=== PATIENT | female | born 1945 | race Caucasian/White ===

== ENCOUNTER 2017-06-09 11:26 | Emergency (ER) | payer MEDICARE ==
[2017-06-09 11:32] VITALS: BMI 18.8
[2017-06-09 11:35] VITALS: O2SAT 99
[2017-06-09] MEDS ORDERED: Iohexol 240 (50 ml) PO STA (12:11)
--- NOTE | 2017-06-09 12:11 | C.PDOC ---
History Of Present Illness 71 year old female presents to the ED c/o of left flank pain and lower abdominal pain that started approximately a week ago. Patient reports her pain started in her left flank kept moving to her lower abdomen associated now with back pain. Patient states she took Tylenol with no relief. Patient denies hx of kidney stones, dysuria, hematuria, nausea, vomit, diarrhea, fever, chills. Time Seen by Provider: 06/09/17 11:43 Chief Complaint (Nursing): Abdominal Pain History Per: Patient History/Exam Limitations: no limitations Onset/Duration Of Symptoms: Days Current Symptoms Are (Timing): Still Present Location Of Pain/Discomfort: Suprapubic Radiation Of Pain To:: Back Quality Of Discomfort: "Pain" Associated Symptoms: Back Pain Exacerbating Factors: None Alleviating Factors: None Recent travel outside of the [place]: No Additional History Per: Patient Abnormal Vaginal Bleeding: No Past Medical History Reviewed: Historical Data, Nursing Documentation, Vital Signs Vital Signs: Last Vital Signs Temp 97.9 F 06/09/17 16:56 Pulse 76 06/09/17 16:56 Resp 18 06/09/17 16:56 BP 151/76 H 06/09/17 16:56 Pulse Ox 99 06/09/17 16:56 - Medical History PMH: Arthritis, Gastritis Denies: Chronic Kidney Disease Surgical History: Endoscopy, Tonsillectomy Family History: States: Unknown Family Hx - Social History Hx Tobacco Use: No Hx Alcohol Use: No Hx Substance Use: No - Immunization History Hx Tetanus Toxoid Vaccination: No Hx Influenza Vaccination: No Hx Pneumococcal Vaccination: Yes Review Of Systems Constitutional: Negative for: Fever, Chills Cardiovascular: Negative for: Chest Pain Respiratory: Negative for: Cough, Shortness of Breath Gastrointestinal: Positive for: Abdominal Pain. Negative for: Nausea, Vomiting Genitourinary: Negative for: Dysuria, Frequency Musculoskeletal: Positive for: Back Pain Skin: Negative for: Rash Neurological: Negative for: Weakness, Numbness Physical Exam - Physical Exam Appears: Non-toxic, No Acute Distress Skin: Normal Color, Warm, Dry Head: Atraumatic, Normacephalic Eye(s): bilateral: Normal Inspection Nose: No Discharge, No Deformity Oral Mucosa: Moist Neck: Normal ROM, Supple Chest: Symmetrical Cardiovascular: Rhythm Regular, No Murmur Respiratory: Normal Breath Sounds, No Rales, No Rhonchi, No Wheezing Gastrointestinal/Abdominal: Soft, Tenderness (Suprapubic ), No Guarding, No Rebound Back: No CVA Tenderness, No Paraspinal Tenderness Extremity: Normal ROM (limited extension due to back pain), No Calf Tenderness, No Deformity, No Swelling Neurological/Psych: Oriented x3, Normal Speech, Normal Cognition, Normal Motor, Normal Sensation Gait: Steady ED Course And Treatment - Laboratory Results Result Diagrams: 06/09/17 13:04 06/09/17 13:04 O2 Sat by Pulse Oximetry: 99 (On RA) Pulse Ox Interpretation: Normal - CT Scan/US CT abd/pelvis Other Rad Studies (CT/US): Read By Radiologist, Radiology Report Reviewed CT/US Interpretation: PROCEDURE: CT scan abdomen and pelvis dated 06/09/2017. . HISTORY: Left flank, mid back, suprapubic pain. COMPARISON: No prior study available for comparison. TECHNIQUE: Contiguous axial images of the pelvis performed following oral contrast and pre and post intravenous injection of approximately 100 cc Visipaque 320 reformats generated. Radiation dose: Total exam DLP = 446.92 mGy-cm. This CT exam was performed using one or more of the following dose reduction techniques: Automated exposure control, adjustment of the mA and/or kV according to patient size, and/or use of iterative reconstruction technique. FINDINGS: LOWER THORAX: Mild passive/ dependent type atelectasis as well as scarring both lung bases including the lingular region. No effusion or basilar pneumothorax. . There is a small hiatal hernia. LIVER: Liver demonstrates normal size. Mild diffuse fatty hepatic infiltration. No obvious hepatic mass collection or calcification. Portal and splenic veins are opacified. GALLBLADDER AND BILE DUCTS: Gallbladder is physiologically distended. No evidence of intraluminal gallbladder calculi. PANCREAS: Unremarkable. No mass. No ductal dilatation. SPLEEN: Unremarkable. No splenomegaly. ADRENALS: Unremarkable. KIDNEYS AND URETERS: Unremarkable. No stone or hydronephrosis. Kidneys demonstrate symmetric nephrograms. No evidence of nephrolithiasis. There are prominent bilateral extrarenal pelves and proximal ureters right larger than left,. The left proximal ureter tapers rapidly normal caliber. The right ureter also tapers to a somewhat lesser degree more distally. No definitive evidence of ureteral calculi. BLADDER: Urinary bladder is moderate to .. Fairly significantly distended. . No evidence of intraluminal urinary bladder calculi. REPRODUCTIVE: Uterus appears grossly unremarkable so far as can be seen. The mass. APPENDIX: The appendix is not seen with any certainty. No obvious inflammatory changes right lower quadrant of the abdomen. BOWEL: Evaluation of the bowel is limited due to incomplete opacification. The to the stomach is incompletely distended which in part accounts for thick-walled appearance. The possibility of gastritis or other intrinsic/invasive wall lesion not excluded. . Visualized loops of small bowel exhibit relatively normal contour and caliber. No evidence of acute mechanical small bowel obstruction with oral contrast material seen within the cecum. Very large amount of stool seen throughout the entire colon consistent with significant fecal retention/ constipation. PERITONEUM: Unremarkable. No fluid collection. No free air. LYMPH NODES: Unremarkable. No enlarged lymph nodes. VASCULATURE: Unremarkable. No aortic aneurysm. BONES: Mild multilevel degenerative spondylosis of the lower thoracic and lumbar spine. There are no acute compression fractures nor retropulsed fragments. OTHER FINDINGS: None. IMPRESSION: Prominent bilateral extrarenal pelves right larger than left. There is mild prominence of the proximal and mid right ureter. The distal ureter is not well delineated though does not appear significantly dilated. No evidence of nephrolithiasis for ureteral calculi seen. . Findings consistent with significant retention/constipation. Appendix not seen with complete certainty however no obvious inflammatory changes right lower quadrant of the abdomen. Mild fatty hepatic infiltration Progress - Re-Evaluation Re-evaluation Note: 06/09/17 16:58 asympt exam neg vss - Data Reviewed Data Reviewed: Lab, Diagnostic imaging, Old records Medical Decision Making Medical Decision Making: Impression: suprapubic pain, back pain Plan: * CT abd/pelvis * Labs * Flomax 0.4 mg PO * Lidocaine 75 mg IV * Omnipaque 50 ml PO * IV fluids * Toradol 15 mg IVP Disposition Counseled Patient/Family Regarding: Studies Performed, Diagnosis, Need For Followup, Rx Given - Disposition Referrals: YOUR,PMD [Other] Disposition: HOME/ ROUTINE Disposition Time: 16:58 Condition: IMPROVED Prescriptions: Magnesium Citrate [[facility] Magnesium Citrate] 300 ml PO ONCE #1 bottle Instructions: Constipation (ED) Forms: [employer] (South Korean) - Clinical Impression Clinical Impression: Constipation - Scribe Statement The provider has reviewed the documentation as recorded by the Scribe Cooper Luther All medical record entries made by the Scribe were at my direction and personally dictated by me. I have reviewed the chart and agree that the record accurately reflects my personal performance of the history, physical exam, medical decision making, and the department course for this patient. I have also personally directed, reviewed, and agree with the discharge instructions and disposition.
[2017-06-09] MEDS ORDERED: Lidocaine 75 MG in Sodium Chloride 0.9% 100 ML IV STA (12:13)
[2017-06-09] MEDS ORDERED: Sodium Chloride 0.9% 1,000 ML IV STA (12:13)
[2017-06-09] MEDS ORDERED: Iohexol 240 (50 ml) ONE (12:22)
[2017-06-09] MEDS ORDERED: Iodixanol 320 MG/ML 100 ML BOTTLE IV ONE (13:07)
[2017-06-09 13:11] LABS: BASO % 0.6 % (0.0-2.0); EOS % 0.8 % (0.0-4.0); HEMOGLOBIN 11.9 g/dL (11.0-16.0); LYMPH # 1.1 K/uL (1.0-4.3); MEAN CELL VOLUME 92.4 fL (81.0-99.0); MEAN CORPUSCULAR HEMOGLOBIN 31.2 pg (27.0-31.0); MEAN CORPUSCULAR HGB CONC 33.7 g/dL (33.0-37.0); MEAN PLATELET VOLUME 10.5 fL (7.2-11.7); MONO # 0.4 K/uL (0.0-0.8); MONO % 7.7 % (0.0-10.0); NEUT # 3.6 K/uL (1.8-7.0); NEUT % 69.9 % (50.0-75.0); RBC 3.81 Mil/uL (3.80-5.20); RED CELL DISTRIBUTION WIDTH 13.3 % (11.5-14.5); WHITE BLOOD COUNT 5.1 K/uL (4.8-10.8)
[2017-06-09 13:21] LABS: URINE BILIRUBIN NEGATIVE (NEGATIVE); URINE BLOOD NEGATIVE (NEGATIVE); URINE CLARITY Clear (Clear); URINE COLOR Yellow (YELLOW); URINE GLUCOSE (UA) NORMAL (Normal); URINE LEUKOCYTE ESTERASE NEG Leu/uL (Negative); URINE NITRATE NEGATIVE (NEGATIVE); URINE PROTEIN NEGATIVE (NEGATIVE); URINE UROBILINOGEN NORMAL mg/dL (0.2-1.0)
[2017-06-09 13:31] LABS: ALB/GLOB RATIO 1.3 (1.0-2.1); ALBUMIN 3.9 g/dL (3.5-5.0); ALT/SGPT 26 U/L (9-52); AST/SGOT 24 U/L (14-36); BLOOD UREA NITROGEN 13 mg/dL (7-17); CALCIUM 9.3 mg/dl (8.6-10.4); GFR AFRICAN-AMERICAN > 60; GFR NON-AFRICAN AMERICAN > 60; LIPASE 268 U/L (23-300)
--- NOTE | 2017-06-09 16:08 | CT ---
PROCEDURE: CT scan abdomen and pelvis dated 06/09/2017. . HISTORY: Left flank, mid back, suprapubic pain. COMPARISON: No prior study available for comparison TECHNIQUE: Contiguous axial images of the pelvis performed following oral contrast and pre and post intravenous injection of approximately 100 cc Visipaque 320 reformats generated. Radiation dose: Total exam DLP = 446.92 mGy-cm. This CT exam was performed using one or more of the following dose reduction techniques: Automated exposure control, adjustment of the mA and/or kV according to patient size, and/or use of iterative reconstruction technique. FINDINGS: LOWER THORAX: Mild passive/dependent type atelectasis as well as scarring both lung bases including the lingular region. No effusion or basilar pneumothorax. . There is a small hiatal hernia. LIVER: Liver demonstrates normal size. Mild diffuse fatty hepatic infiltration. No obvious hepatic mass collection or calcification. Portal and splenic veins are opacified. GALLBLADDER AND BILE DUCTS: Gallbladder is physiologically distended. No evidence of intraluminal gallbladder calculi. PANCREAS: Unremarkable. No mass. No ductal dilatation. SPLEEN: Unremarkable. No splenomegaly. ADRENALS: Unremarkable. KIDNEYS AND URETERS: Unremarkable. No stone or hydronephrosis. Kidneys demonstrate symmetric nephrograms. No evidence of nephrolithiasis. There are prominent bilateral extrarenal pelves and proximal ureters right larger than left,. The left proximal ureter tapers rapidly normal caliber. The right ureter also tapers to a somewhat lesser degree more distally. No definitive evidence of ureteral calculi. BLADDER: Urinary bladder is moderate to .. Fairly significantly distended. . No evidence of intraluminal urinary bladder calculi. REPRODUCTIVE: Uterus appears grossly unremarkable so far as can be seen. The mass APPENDIX: The appendix is not seen with any certainty. No obvious inflammatory changes right lower quadrant of the abdomen. BOWEL: Evaluation of the bowel is limited due to incomplete opacification. The to the stomach is incompletely distended which in part accounts for thick-walled appearance. The possibility of gastritis or other intrinsic/invasive wall lesion not excluded. . Visualized loops of small bowel exhibit relatively normal contour and caliber. No evidence of acute mechanical small bowel obstruction with oral contrast material seen within the cecum. Very large amount of stool seen throughout the entire colon consistent with significant fecal retention/ constipation. PERITONEUM: Unremarkable. No fluid collection. No free air. LYMPH NODES: Unremarkable. No enlarged lymph nodes. VASCULATURE: Unremarkable. No aortic aneurysm. BONES: Mild multilevel degenerative spondylosis of the lower thoracic and lumbar spine. There are no acute compression fractures nor retropulsed fragments OTHER FINDINGS: None. IMPRESSION: Prominent bilateral extrarenal pelves right larger than left. There is mild prominence of the proximal and mid right ureter. The distal ureter is not well delineated though does not appear significantly dilated. No evidence of nephrolithiasis for ureteral calculi seen. . Findings consistent with significant retention/constipation. Appendix not seen with complete certainty however no obvious inflammatory changes right lower quadrant of the abdomen. Mild fatty hepatic infiltration
[2017-06-09 16:57] VITALS: BP 151/76; PULSE 76; RESP 18; TEMP 97.9
== END 2017-06-09 17:07 | disposition home or self-care (01) ==
LOC: C.ER 11:26
DX: K59.00 Constipation, unspecified (principal)
CPT/HCPCS: 74178; 80053; 81001; 83690; 85025; 96361; 96374; 99285; J1885; J2001; J7040; Q9966; Q9967

== ENCOUNTER 2017-10-22 08:31 | Observation (INO) | payer MEDICARE ==
[2017-10-17 09:09] VITALS: BMI 18.1
[2017-10-22] MEDS ORDERED: Propofol 10 mg/ml Inj (20 ML) ONE (10:07)
[2017-10-22] MEDS ORDERED: Midazolam 2 MG/2 ML VIAL ONE (10:07)
--- NOTE | 2017-10-22 11:17 | PCM.SURG1 ---
Surgeon's Initial Post Op Note - Surgeon's Notes Surgeon: Dr. Lissette Vinson [employer] Tutor: none Type of Anesthesia: General LMA Pre-Operative Diagnosis: postmenopausal patient, thickened endometrial lining, endometrial mass Operative Findings: uterus approx 7cm, endometrial polyp, uterine perforation Post-Operative Diagnosis: same, endometrial polyp Operation Performed: hysteroscopy, d&C, polypectomy with MyoSure, abdominal ultrasound Specimen/Specimens Removed: endometrial polyp and curettings Estimated Blood Loss: EBL {In ML}: 10 Blood Products Given: N/A Drains Used: No Drains Post-Op Condition: Good Date of Surgery/Procedure: 10/22/18 Time of Surgery/Procedure: 10:15
[2017-10-22 11:42] LABS: BASO % 0.6 % (0.0-2.0); EOS % 0.8 % (0.0-4.0); HEMOGLOBIN 10.8 g/dL (11.0-16.0); LYMPH % 20.6 % (20.0-40.0); MEAN CELL VOLUME 93.4 fL (81.0-99.0); MEAN CORPUSCULAR HEMOGLOBIN 31.1 pg (27.0-31.0); MEAN CORPUSCULAR HGB CONC 33.3 g/dL (33.0-37.0); MEAN PLATELET VOLUME 9.2 fL (7.2-11.7); MONO # 0.3 K/uL (0.0-0.8); MONO % 6.6 % (0.0-10.0); NEUT # 3.3 K/uL (1.8-7.0); NEUT % 71.4 % (50.0-75.0); RBC 3.47 Mil/uL (3.80-5.20); RED CELL DISTRIBUTION WIDTH 13.7 % (11.5-14.5); WHITE BLOOD COUNT 4.6 K/uL (4.8-10.8)
[2017-10-22 11:55] LABS: ALB/GLOB RATIO 1.3 (1.0-2.1); ALBUMIN 3.8 g/dL (3.5-5.0); ALT/SGPT 39 U/L (9-52); AST/SGOT 23 U/L (14-36); BLOOD UREA NITROGEN 13 mg/dL (7-17); GFR AFRICAN-AMERICAN > 60; GFR NON-AFRICAN AMERICAN 54
[2017-10-22 14:17] LABS: ALB/GLOB RATIO 1.2 (1.0-2.1); ALBUMIN 3.8 g/dL (3.5-5.0); ALT/SGPT 28 U/L (9-52); AST/SGOT 31 U/L (14-36); BLOOD UREA NITROGEN 12 mg/dL (7-17); CALCIUM 9.1 mg/dl (8.6-10.4); GFR AFRICAN-AMERICAN > 60; GFR NON-AFRICAN AMERICAN > 60
[2017-10-22 16:07] LABS: BASO % 0.5 % (0.0-2.0); EOS % 0.6 % (0.0-4.0); LYMPH # 1.2 K/uL (1.0-4.3); LYMPH % 19.4 % (20.0-40.0); MEAN CELL VOLUME 93.6 fL (81.0-99.0); MEAN CORPUSCULAR HEMOGLOBIN 31.7 pg (27.0-31.0); MEAN CORPUSCULAR HGB CONC 33.8 g/dL (33.0-37.0); MEAN PLATELET VOLUME 9.9 fL (7.2-11.7); MONO # 0.3 K/uL (0.0-0.8); MONO % 5.7 % (0.0-10.0); NEUT # 4.4 K/uL (1.8-7.0); NEUT % 73.8 % (50.0-75.0); RBC 3.78 Mil/uL (3.80-5.20); RED CELL DISTRIBUTION WIDTH 13.4 % (11.5-14.5); WHITE BLOOD COUNT 5.9 K/uL (4.8-10.8)
[2017-10-23 08:15] LABS: BASO % 0.3 % (0.0-2.0); EOS # 0.1 K/uL (0.0-0.7); EOS % 1.3 % (0.0-4.0); HEMOGLOBIN 11.3 g/dL (11.0-16.0); LYMPH # 0.9 K/uL (1.0-4.3); LYMPH % 13.7 % (20.0-40.0); MEAN CELL VOLUME 93.6 fL (81.0-99.0); MEAN CORPUSCULAR HGB CONC 34.2 g/dL (33.0-37.0); MEAN PLATELET VOLUME 10.1 fL (7.2-11.7); MONO # 0.4 K/uL (0.0-0.8); MONO % 6.1 % (0.0-10.0); NEUT # 5.3 K/uL (1.8-7.0); NEUT % 78.6 % (50.0-75.0); RBC 3.54 Mil/uL (3.80-5.20); RED CELL DISTRIBUTION WIDTH 13.7 % (11.5-14.5); WHITE BLOOD COUNT 6.8 K/uL (4.8-10.8)
[2017-10-23 08:25] VITALS: BP 130/71; PULSE 81; RESP 18; TEMP 98.9; O2SAT 97
[2017-10-23 08:50] LABS: ALB/GLOB RATIO 1.3 (1.0-2.1); ALBUMIN 3.4 g/dL (3.5-5.0); ALT/SGPT 32 U/L (9-52); AST/SGOT 25 U/L (14-36); BLOOD UREA NITROGEN 13 mg/dL (7-17); CALCIUM 8.9 mg/dl (8.6-10.4); GFR AFRICAN-AMERICAN > 60; GFR NON-AFRICAN AMERICAN 54
--- NOTE | 2017-10-26 00:40 | OP ---
PROCEDURE DATE: 10/22/2017 PREOPERATIVE DIAGNOSES: Postmenopausal patient, thickened endometrial lining, endometrial mass. POSTOPERATIVE DIAGNOSES: Postmenopausal patient, thickened endometrial lining, endometrial mass, endometrial polyp. INTRAOPERATIVE FINDINGS: Uterus approximately 7 cm in size, endometrial polyp and uterine perforation was noted. SURGERY PERFORMED: Hysteroscopy, dilation and curettage, polypectomy with Myosure and abdominal ultrasound. SURGEON: Lissette Vinson MD. RDA: There were no content assistant surgeon. TYPE OF ANESTHESIA: General LMA. SPECIMENS REMOVED: Endometrial polyps and curettings. ESTIMATED BLOOD LOSS: 10 mL. BLOOD PRODUCTS: There were no blood products given. DRAINS: No drains used. POSTOPERATIVE CONDITION: Stable. DESCRIPTION OF PROCEDURE: After all relevant documentation was reviewed and signed by , the patient was taken back to the OR room. She was prepped and draped in the usual sterile fashion after being placed under general anesthesia and positioned in lithotomy. After bimanual examination, a weighted speculum was introduced and the anterior lip of the cervix was then grasped with a single-tooth tenaculum. The cervix was then gently serially dilated and then the hysteroscope was introduced. The endometrial polyp was visualized and removed with the use of a Myosure. The hysteroscope was then removed and a gentle curettage was the performed. It was at this time that was noted that a large deficit of fluid was noted of approximately 2 L. The weighted speculum was removed and the single-tooth tenaculum was removed and excellent hemostasis was achieved with the use of Monsel solution. Attention was then placed on the patient's abdomen where a transabdominal ultrasound revealed intraabdominal fluid, which would be consistent with either fluid extravasation through the fallopian tubes versus possible endometrial perforation. The patient was then awoken from general anesthesia and taken back to the recovery room in stable condition. The patient was then kept overnight with serial CBCs and electrolytes confirming the patient was completely hemodynamically stable and no evidence of bleeding was noted. The patient was then discharged home in stable condition on postoperative day #1. All lap counts and instrument counts were correct x2. Lissette Vinson MD
== END 2017-10-23 13:20 | disposition home or self-care (01) ==
LOC: C.SDS 08:31 → C.4M 12:18
PROVIDERS: ADMIT Obstetrics & Gynecology; ATTEND Obstetrics & Gynecology
DX: N84.0 Polyp of corpus uteri (principal); R93.8 Abnormal findings on diagnostic imaging of other specified body structures; N95.9 Unspecified menopausal and perimenopausal disorder; N99.71 Accidental puncture and laceration of a genitourinary system organ or structure during a genitourinary system procedure
CPT/HCPCS: 36415; 58561; 80053; 85025; 88305; G0378; J2250; J2704; J3010

== ENCOUNTER 2017-12-13 13:09 | Emergency (ER) | payer MEDICARE ==
[2017-12-13 13:10] VITALS: BMI 18.1
[2017-12-13 13:25] VITALS: TEMP 98.3; O2SAT 98
--- NOTE | 2017-12-13 14:12 | C.PDOC ---
History Of Present Illness 72 y/o female with history of cataracts and no other PMHx reports to the emergency department with complaints of redness to the lower part of her left eye since this morning. She denies any trauma, pain, itching, visual changes, or tearing. Patient does not use contact lenses. Sees Dr. Camp for her cataracts. Time Seen by Provider: 12/13/17 13:47 Chief Complaint (Nursing): Eye Problem History Per: Patient History/Exam Limitations: no limitations Onset/Duration Of Symptoms: Hrs Current Symptoms Are (Timing): Still Present Past Medical History Reviewed: Historical Data, Nursing Documentation, Vital Signs Vital Signs: Last Vital Signs Temp 98.3 F 12/13/17 13:22 Pulse 81 12/13/17 14:18 Resp 16 12/13/17 14:18 BP 129/85 12/13/17 14:18 Pulse Ox 98 12/13/17 14:47 - Medical History PMH: Arthritis, Gastritis Denies: Chronic Kidney Disease Surgical History: Endoscopy, Tonsillectomy Family History: States: Unknown Family Hx - Social History Hx Tobacco Use: No Hx Alcohol Use: No Hx Substance Use: No - Immunization History Hx Tetanus Toxoid Vaccination: No Hx Influenza Vaccination: No Hx Pneumococcal Vaccination: Yes Review Of Systems Constitutional: Negative for: Fever, Chills Eyes: Positive for: Redness (to the lower part of left eye), Other (no tearing) . Negative for: Pain, Vision Change Physical Exam - Physical Exam Appears: Non-toxic, No Acute Distress Skin: Warm Head: Atraumatic, Normacephalic Eye(s): bilateral: PERRL, EOMI, left: Other (subconjunctival hemorrhage to lower part; no hyphema) Oral Mucosa: Moist Neck: Supple Chest: Symmetrical Extremity: Normal ROM Extremity: Bilateral: Atraumatic, Normal Color And Temperature, Normal ROM Neurological/Psych: Oriented x3, Normal Speech, Normal Motor Gait: Steady ED Course And Treatment O2 Sat by Pulse Oximetry: 98 (RA) Pulse Ox Interpretation: Normal Medical Decision Making Medical Decision Making: Impression: Lower left eye erythema Plan: Eye exam is benign at this time. Patient has an appointment with Dr. Camp next week and will follow up then. No need for diagnostic testing at this time. Disposition Counseled Patient/Family Regarding: Diagnosis, Need For Followup - Disposition Referrals: Balaji Camp MD [Staff Provider] - Disposition: HOME/ ROUTINE Disposition Time: 14:11 Condition: GOOD Additional Instructions: Follow up with the Eye doctor within 1-2 days without fail. Return if worsened. 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 - Scribe Statement The provider has reviewed the documentation as recorded by the Scribe (Aminata Weaver) All medical record entries made by the Scribe were at my direction and personally dictated by me. I have reviewed the chart and agree that the record accurately reflects my personal performance of the history, physical exam, medical decision making, and the department course for this patient. I have also personally directed, reviewed, and agree with the discharge instructions and disposition.
[2017-12-13 14:19] VITALS: BP 129/85; PULSE 81; RESP 16
== END 2017-12-13 14:18 | disposition home or self-care (01) ==
LOC: C.ER 13:09
DX: H11.32 Conjunctival hemorrhage, left eye (principal)

== ENCOUNTER 2018-05-21 10:38 | Outpatient (CLI) | payer MEDICARE | END 2018-05-21 10:39 | disposition home or self-care (01) | LOC: C.CTH 10:38 | DX: R93.89 Abnormal findings on diagnostic imaging of other specified body structures (principal); E78.5 Hyperlipidemia, unspecified ==

== ENCOUNTER 2018-07-21 11:12 | Emergency (ER) | payer MEDICARE ==
[2018-07-21 11:13] VITALS: BMI 18.1
[2018-07-21 11:27] VITALS: RESP 18
[2018-07-21] MEDS ORDERED: Dexamethasone 10 MG in Sodium Chloride 0.9% 50 ML IM ONE (11:39)
--- NOTE | 2018-07-21 11:39 | C.PDOC ---
History Of Present Illness 72 year old female presents to ED with complaint of left lower back pain that began 3 days ago. Triage noted that the patient states that the pain radiated into her left leg, but when asked again by the physician the patient states the pain radiates up her back. Patient states that it hurts to stand up and sit down. Patient has a past surgical history of thyroid surgery for a non-toxic goiter and eye surgery for glaucoma. Patient took Tylenol for the pain; last dose was yesterday. She denies trauma, heavy lifting, urinary symptoms, fever, chills, cough, abdominal pain, vomiting, nausea, or bowel/ bladder dysfunction. Chief Complaint (Nursing): Back Pain History Per: Patient History/Exam Limitations: no limitations Onset/Duration Of Symptoms: Days (3) Current Symptoms Are (Timing): Still Present Quality Of Discomfort: "Pain" Associated Symptoms: denies: Incontinence, New Weakness, New Numbness Exacerbating Factor(s): Sitting, Standing Past Medical History Reviewed: Historical Data, Nursing Documentation, Vital Signs Vital Signs: Last Vital Signs Temp 97.6 F 07/21/18 11:21 Pulse 74 07/21/18 11:21 Resp 18 07/21/18 11:21 BP 164/84 H 07/21/18 11:21 Pulse Ox 99 07/21/18 11:21 - Medical History PMH: Arthritis, Gastritis, Hypothyroidism Denies: Chronic Kidney Disease Surgical History: Endoscopy, Tonsillectomy Family History: States: Unknown Family Hx - Social History Hx Tobacco Use: No Hx Alcohol Use: No Hx Substance Use: No - Immunization History Hx Tetanus Toxoid Vaccination: No Hx Influenza Vaccination: No Hx Pneumococcal Vaccination: Yes Review Of Systems Constitutional: Negative for: Fever, Chills, Weakness Respiratory: Negative for: Cough Gastrointestinal: Negative for: Nausea, Vomiting, Abdominal Pain Genitourinary: Negative for: Dysuria, Frequency, Incontinence, Hematuria Musculoskeletal: Positive for: Back Pain (left lower back) Neurological: Negative for: Weakness, Numbness, Dizziness Physical Exam - Physical Exam Appears: Well, Non-toxic, No Acute Distress Skin: Normal Color, Warm, Dry Head: Atraumatic, Normacephalic Oral Mucosa: Moist Neck: Normal ROM, Supple Chest: Symmetrical, No Deformity Cardiovascular: No Rhythm Regular, No Murmur Respiratory: No Accessory Muscle Use, No Rales, No Rhonchi, No Wheezing Gastrointestinal/Abdominal: Soft, No Tenderness Back: Normal Inspection, No CVA Tenderness, Paraspinal Tenderness (left lumbar region), Straight Leg Raising (negative) Extremity: Normal ROM, Capillary Refill (<2 seconds) Extremity: Bilateral: Atraumatic, Normal Color And Temperature, Normal ROM Pulses: Left Dorsalis Pedis: Normal, Right Dorsalis Pedis: Normal DTR: Knee (R): 2+, Knee (L): 2+ Neurological/Psych: Oriented x3, Normal Speech, Normal Cognition, Normal Motor, Normal Sensation Gait: Steady ED Course And Treatment O2 Sat by Pulse Oximetry: 99 (in RA) Medical Decision Making Medical Decision Making: Impression: 72 year old female presents to ED with complaint of left lower back pain that began 3 days ago. Plan: L-spine X-ray Toradol IM Urine culture UA Patient reassessed after Toradol, states she feels better. UA neg, xray read by me w/nad. Results d/w patient. Patient stable for d/c home to f/u w/her pcp. Patient also instructed to RTED for new, worsening or concerning symptoms. Disposition Counseled Patient/Family Regarding: Studies Performed, Diagnosis, Need For Followup - Disposition Referrals: Bruce Oliver DO [[facility]] - Disposition: HOME/ ROUTINE Disposition Time: 14:16 Condition: IMPROVED Additional Instructions: TARA LEE, thank you for letting us take care of you today. Your provider was Madeline Gruber MD and you were treated for BACK PAIN. The emergency medical care you received today was directed at your acute symptoms. If you were prescribed any medication, please fill it and take as directed. It may take several days for your symptoms to resolve. Return to the Emergency Department if your symptoms worsen, do not improve, or if you have any other problems. Please contact your doctor in 1-2 days for a followup appointment. Bring any paperwork you were given at discharge with you along with any medications you are taking to your follow up visit. Our treatment cannot replace ongoing medical care by a primary care provider outside of the emergency department. Thank you for allowing the [facility] team to be part of your care today. If you had an X-Ray or CT scan: A Radiologist will review the ED reading if any change in treatment is needed we will contact you. If you had a blood, urine, or wound culture: It will take several days for the results, if any change in treatment is needed we will contact you. If you had an STI test: It will take 48 hours for the results. Please call after 1 week if you have not heard back. Prescriptions: Cyclobenzaprine [Flexeril] 10 mg PO TID #12 tab Ibuprofen [Motrin] 600 mg PO Q6 #30 tab Instructions: Low Back Pain (DC) Forms: [facility] (Lithuanian), General Discharge Instructions - Clinical Impression Clinical Impression: Low back pain - Scribe Statement The provider has reviewed the documentation as recorded by the Scribe (Heike Mccain) All medical record entries made by the Scribe were at my direction and personally dictated by me. I have reviewed the chart and agree that the record accurately reflects my personal performance of the history, physical exam, medical decision making, and the department course for this patient. I have also personally directed, reviewed, and agree with the discharge instructions and disposition.
[2018-07-21 13:53] LABS: URINE BILIRUBIN NEGATIVE (NEGATIVE); URINE BLOOD NEGATIVE (NEGATIVE); URINE CLARITY Clear (Clear); URINE COLOR Straw (YELLOW); URINE GLUCOSE (UA) NORMAL (Normal); URINE LEUKOCYTE ESTERASE NEG Leu/uL (Negative); URINE PROTEIN NEGATIVE (NEGATIVE); URINE UROBILINOGEN NORMAL mg/dL (0.2-1.0)
[2018-07-21 14:50] VITALS: BP 145/80; PULSE 78; TEMP 97.8
--- NOTE | 2018-07-21 18:24 | RAD ---
Date of service: 07/21/2018 PROCEDURE: Radiographs of the Lumbar Spine. HISTORY: Pain. No history of recent/ related trauma provided. COMPARISON: No prior. FINDINGS: BONES: Normal alignment. No listhesis. No fracture. DISC SPACES: Mild degenerative change primarily disc space narrowing L4-5 and L5-S1. OTHER FINDINGS: None. IMPRESSION: No significant or acute findings to account for/ related to the clinical presentation. Additional benign and/or incidental findings described above. Concordant results with the preliminary interpretation rendered by the emergency department physician procedure.
[2018-07-21 18:27] VITALS: O2SAT 99
== END 2018-07-21 14:50 | disposition home or self-care (01) ==
LOC: C.ER 11:12
DX: M54.5 Low back pain (principal); E03.9 Hypothyroidism, unspecified
CPT/HCPCS: 72100; 81001; 87086; 96372; 99283; J1885